=== PATIENT | male | born 1965 | race Caucasian/White ===

== ENCOUNTER 2020-09-16 14:10 | Emergency (ER) | payer OTHER, SELFPAY ==
[2020-09-16 14:10] VITALS: BP 145/96; PULSE 78; RESP 19; TEMP 36.6; O2SAT 95
[2020-09-16 14:17] VITALS: PULSE 77
--- NOTE | 2020-09-16 14:21 | PC.NURSE ---
PT argumentative with this RN. Pt will not tell RN what pharmacy he would use, stating i dont need any medication Finally get pt to agree to a pharmacy. Pt states Im not putting on a gown Pt asked to take off large necklaces in case he needs a chest x ray, pt refuses.
--- NOTE | 2020-09-16 14:39 | PC.NURSE ---
Pt states Im leaving, give me whatever papers I need to sign Pt informed that he has not been seen by a provider yet so he is free to leave without signing any papers. Pt ambulated to the exit with no difficulty
--- NOTE | 2020-09-16 14:41 | ECG_ITS ---
Measurements Intervals [place] Rate: 72 P: 23 WV: 153 QRS: -3 QRSD: 93 T: 65 QT: 386 QTc: 425 Interpretive Statements SINUS RHYTHM NORMAL ECG Electronically Signed On 09-16-2020 15:05:58 CRIMINALIST by Reji Bee D.O.
== END 2020-09-16 14:43 | disposition left against medical advice (07) ==
LOC: ANHED 14:37
PROVIDERS: Emergency Provider Emergency Medicine
DX: R06.02 Shortness of breath (principal)
CPT/HCPCS: 93005; 99199

== ENCOUNTER 2020-11-28 18:01 | Emergency (ER) | payer OTHER, SELFPAY ==
--- NOTE | ~2020-11-28 | CT_ITS ---
EXAMINATION: CT abdomen pelvis w con DATE: 11/28/2020 19:24 INDICATION: Epigastric abdominal pain. Right lower quadrant abdominal pain. Hematuria. TECHNIQUE: Computed tomography (CT) of the abdomen and pelvis was performed with 100 mL Omnipaque 350 intravenous contrast. Automated exposure control and iterative reconstruction technique were employe d. The dose-length product was 494.55 mGy-cm. COMPARISON: None. FINDINGS: The visualized portions of the lung bases demonstrate mild atelectasis. No pleural effusion . The heart size is normal. There are coronary artery calcifications. No pericardial effusion. Calcif ications in the liver consistent with old granulomatous disease. The gallbladder, spleen, pancreas, a nd adrenal glands are normal. There are cysts in the kidneys measuring up to 8 mm in the right. The p rostate is moderately enlarged. There is diverticulosis of the colon without evidence of diverticulit is. The appendix is normal. The stomach is distended. There are no pathologically enlarged lymph node s. There is no free intraperitoneal fluid. There is severe lumbar spondylosis. IMPRESSION: 1. Distention of the stomach. Reviewed, dictated and finalized at location A.
[2020-11-28 18:03] VITALS: BP 108/82; PULSE 95; RESP 18; TEMP 36.7; O2SAT 95
[2020-11-28 18:50] LABS: Basophils Absolute Auto 0.1 K/mm3 (0.0-0.1); Basophils Percent Auto 0.5 % (0.2-1.2); Eosinophils Absolute Auto 0.2 K/mm3 (0-0.3); Hematocrit 42.3 % (42.0-52.0); Hemoglobin 14.1 g/dL (14.0-18.0); Immature Granulocyte Absolute 0.03 K/mm3 (0.00-0.031); Immature Granulocyte Percent A 0.3 % (0-0.5); Lymphocytes Absolute Auto 2.08 K/mm3 (0.9-3.2); Lymphocytes Percent Auto 21.6 % (18.3-44.2); Mean Corpuscular HGB Conc 33.3 g/dl (32-36); Mean Corpuscular Hemoglobin 28.5 pg (26-34); Mean Corpuscular Volume 85.5 fl (80-100); Mean Platelet Volume 9.5 fl (7.4-10.4); Monocytes Absolute Auto 0.9 K/mm3 (0.1-0.6); Monocytes Percent Auto 9.3 % (2.6-8.5); Neutrophils Absolute Auto 6.4 K/mm3 (1.3-6.7); Neutrophils Percent Auto 66.3 % (45.5-73.1); Platelet Count Result 283 k/mm3 (150-375); Red Blood Count 4.95 M/mm3 (4.6-6.20); Red Cell Distribution Width 13.2 % (11.5-14.5); White Blood Count 9.6 K/mm3 (4.5-10.0)
[2020-11-28 19:02] LABS: Alanine Aminotransferase 18 U/L (4-50); Albumin Level 4.2 g/dL (3.5-5.1); Alkaline Phosphatase 92 U/L (38-126); Anion Gap 8 mmol/L (8-16); Aspartate Amino Transferase 31 U/L (17-59); Bilirubin,Total 0.4 mg/dL (0.2-1.3); Blood Urea Nitrogen 23 mg/dL (9-20); Calcium 9.2 mg/dL (8.4-10.2); Carbon Dioxide 29 mmol/L (22-30); Chloride 104 mmol/L (98-107); Estimated CRCL calculation 80 ml/min; Estimated Glomerular Filt Rate > 60; Glucose 131 mg/dL (75-110); Lipase 69 U/L (23-300); Potassium 4.1 mmol/L (3.4-5.0); Sodium 141 mmol/L (137-145)
--- NOTE | 2020-11-28 19:42 | PC.NURSE ---
pt states he isnt able to urinate at this time, refused straight cath.
[2020-11-28 19:45] VITALS: BP 103/53; PULSE 90; RESP 20; O2SAT 96
--- NOTE | 2020-11-28 19:57 | PC.NURSE ---
pt refused a straight cath at 1957
[2020-11-28] MEDS: SODIUM CHLORIDE 0.9% IV 1,000 ML 999 ML IV CONT (20:14)
[2020-11-28] MEDS: DICYCLOMINE HCL INJ 20 MG/2 ML VIAL IM (20:14)
[2020-11-28 20:24] LABS: Add Urine Microscopic? YES; Appearance Urine Cloudy (Clear); Bilirubin Urine Negative (Negative); Blood Urine 3+ (Negative); Color Urine Yellow (Yellow); Glucose Urine UA Negative (Negative); Ketones Urine Negative (Negative); Leukocyte Esterase Ur Negative LEU/UL (Negative); Mucus Urine Rare /lpf; Nitrate Urine Negative (Negative); Protein Urine 1+ mg/dL (Negative); RBC Urine >75 /hpf (0-2); WBC Urine 0-3 /hpf
[2020-11-28 20:26] LABS: Specific Grav Ur 1.048 (1.001-1.035)
[2020-11-28 20:42] VITALS: BP 114/75; PULSE 85; RESP 18; O2SAT 99
[2020-11-28 21:00] LABS: Barbiturate Screen Urine Negative (Negative); Benzodiazepines Screen Urine Negative (Negative)
--- NOTE | 2020-11-28 21:00 | ED.ABDPAIN ---
HPI - Abdominal Pain General Chief Complaint: Abdominal Pain Stated Complaint: abd pain Time Seen by Provider: 11/28/20 18:23 Source: patient Mode of arrival: ambulatory Limitations: no limitations History of Present Illness HPI narrative: Patient is a 55-year-old male presenting with chief complaint of evaluation of right inguinal hernia. Patient states he has had a hernia for many years but occasionally it becomes painful and makes him feel nauseous. Patient is not having the pain or the nausea at this time. Patient states he also has some epigastric cramping and right lower quadrant pain. He reports he had a few episodes of vomiting a few days ago but denies any today. Patient states that he will lose some blood in his urine. He has not had any issues urinating. He is not passing blood clots. Patient denies fever, chills, nausea, vomiting, diarrhea, chest pain or shortness of breath or any other symptoms. Related Data Allergies Allergy/AdvReac Type Severity Reaction Status Date / Time No Known Allergies Allergy Verified 11/28/20 18:05 Review of Systems Review of Systems: Narrative: CONSTITUTIONAL: Denies fever, chills, or sweats. EYES: Denies visual changes, redness, or discharge. ENT: Denies rhinorrhea, congestion, sore throat, or otalgia. CARDIOVASCULAR: Denies chest pain, palpitations, or edema. RESPIRATORY: Denies cough or dyspnea. GASTROINTESTINAL: Right groin hernia right lower quadrant epigastric pain denies nausea, vomiting, or diarrhea. GENITOURINARY: Denies dysuria or hematuria. SKIN: Denies rash or itching. MUSCULOSKELETAL: Denies back pain, joint pain, or myalgia. NEUROLOGIC: Denies headache, numbness, dizziness, or weakness. PSYCHIATRIC: Denies anxiety or depression. PMFSH Social History Social History Gender identity (if verbalized by the patient): Male Exam Narrative: Exam Narrative: GENERAL: Well-nourished, and in no acute distress. Disheveled with dirty fingernails and clothing. HEAD: Normocephalic, atraumatic. EYES: PERRLA and EOMI. ENT: Nares clear, no rhinorrhea or epistaxis. Mucous membranes moist. Oropharynx without tonsillar hypertrophy exudate or other lesions. Bilateral TMs pearly villa nonbulging NECK: Supple. No adenopathy or masses. CHEST: Clear to auscultation. No respiratory distress. No wheezes rales or rhonchi HEART: Regular rate and rhythm. No murmur heard. Normal peripheral pulses. ABDOMEN: Soft, reports tenderness with right lower quadrant palpation, nondistended, normal active bowel sounds. EXTREMITIES: Normal range of motion. No edema. SKIN: Patient has pustule to right arm that is draining. Appears mildly cellulitic. Warm, dry, no rash. NEURO: No focal deficits. Alert and oriented x3. PSYCH: Normal mood and affect. Course Vital Signs Vital signs: Vital Signs Temperature 98.0 F 11/28/20 18:03 Pulse Rate 95 11/28/20 18:03 Respiratory Rate 18 11/28/20 18:03 Blood Pressure 108/82 11/28/20 18:03 Pulse Oximetry 95 11/28/20 18:03 Temperature 98.0 F 11/28/20 18:03 Pulse Rate 85 11/28/20 20:42 Respiratory Rate 18 11/28/20 20:42 Blood Pressure 114/75 11/28/20 20:42 Pulse Oximetry 99 11/28/20 20:42 MDM - Abdominal Pain MDM Narrative Medical decision making narrative: Patient has been sleeping comfortably in emergency department throughout his visit. Not having any signs of discomfort or distress. Discussed work-up findings and the need for follow-up. Patient instructed follow-up with urology for further investigation of the blood in his urine. Patient not passing blood clots and not having any obstruction to his urination. Patient not show any signs of kidney injury. Patient also be started on Bactrim for cellulitis to the right arm. Patient instructed to follow-up with general surgery if you would like to discuss options for right inguinal hernia repair. Patient strict return to emergency department if he has any signs of incarcer
[2020-11-28 21:13] LABS: Cannabinoid Screen Urine Positive (Negative); Cocaine Screen Urine Negative (Negative); Methadone Screen Urine Negative (Negative); Opiate Screen Urine Negative (Negative); Phencyclidine Screen Urine Negative (Negative)
[2020-11-28 21:22] VITALS: BP 115/75; PULSE 82; RESP 18; O2SAT 99
[2020-11-28 21:32] LABS: Amphetamine Screen Urine Positive (Negative)
== END 2020-11-28 21:24 | disposition home or self-care (01) ==
PROVIDERS: Physician Assistant; Emergency Provider Emergency Medicine
DX: K40.90 Unilateral inguinal hernia, without obstruction or gangrene, not specified as recurrent (principal); L03.113 Cellulitis of right upper limb; R31.9 Hematuria, unspecified
CPT/HCPCS: 36415; 74177; 80053; 80307; 81001; 83690; 85025; 96360; 96372; 99284; J0500; J7030; Q9967

== ENCOUNTER 2024-03-02 02:45 | Emergency (ER) | payer OTHER, SELFPAY ==
[2024-03-02] VITALS (8 sets, daily range): BP systolic 113–130; BP diastolic 72–79; PULSE 62–93; RESP 15–24; TEMP 37.3; O2SAT 96–100
--- NOTE | ~2024-03-02 | XR_ITS ---
EXAMINATION: XR chest 1V portable DATE: 03/02/2024 03:28 INDICATION: Chest pain. TECHNIQUE: A single frontal view of the chest was obtained on 2 radiographs. COMPARISON: Chest single view 10/06/2011 FINDINGS: There is mild atelectasis in the lower lung zones. No pleural effusion or pneumothorax. The heart size is normal. IMPRESSION: 1. Mild atelectasis in the lower lung zones. Reviewed, dictated and finalized at location A.
--- NOTE | ~2024-03-02 | CT_ITS ---
EXAMINATION: CTA chest PE protocol DATE: 03/02/2024 05:05 INDICATION: Chest pain. TECHNIQUE: Computed tomography angiography (CTA) of the chest was performed with 100 mL Omnipaque-350 intravenous contrast timed to evaluate the pulmonary arteries. Coronal maximum intensity projection 3D-reconstructions were created by the technologist. Automated exposure control and iterative reconst ruction technique were employed. The dose-length product was 667.33 mGy-cm. COMPARISON: CT abdomen and pelvis 11/28/2020 FINDINGS: There is moderate emphysema. There is mild atelectasis bilaterally. Again seen is a 6 mm no dule in right middle lobe, likely benign. There is a 6 mm nodule in left lower lobe. There is a 5 mm nodule in lingula. Calcified right lung nodules and calcified right hilar lymph nodes are consistent with old granulomatous disease. No pleural effusion. The heart size is normal. No pericardial effusio n. There is mild bilateral hilar lymphadenopathy. There is mild pulmonary embolus. Calcifications in the liver are consistent with old granulomatous disease. There is severe thoracic spondylosis. IMPRESSION: 1. No pulmonary embolus. 2. Moderate emphysema. 3. Pulmonary nodules measuring up to 6 mm, probably benign. Noncontrast low-dose chest CT is recommen ded in 6 months. 4. Mild bilateral hilar lymphadenopathy, likely reactive. Reviewed, dictated and finalized at location A. IMPRESSION: 1. No pulmonary embolus. 2. Moderate emphysema. 3. Pulmonary nodules measuring up to 6 mm, probably benign. Noncontrast low-dos e chest CT is recommended in 6 months. 4. Mild bilateral hilar lymphadenopathy, likely reactive.
--- NOTE | 2024-03-02 02:48 | ECG_ITS ---
Test Date: 2024-03-02 02:51:14 Measurements Intervals [place] Rate: 82 P: 38 NC: 157 QRS: 59 QRSD: 85 T: 72 QT: 352 QTc: 413 Interpretive Statements SINUS RHYTHM WITH OCCASIONAL VENTRICULAR PREMATURE COMPLEXES BASELINE ARTIFACT- I, III, AVR, AVL, V1 BORDERLINE ECG No previous ECG available for comparison Electronically Signed On 03-02-2024 07:40:45 CDT by Reji Bee D.O.
[2024-03-02 03:23] LABS: Basophils Percent Auto 0.4 % (0.2-1.2); Eosinophils Absolute Auto 0.1 K/mm3 (0-0.3); Eosinophils Percent Auto 1.2 % (0-4.4); Hematocrit 43.8 % (42.0-52.0); Hemoglobin 14.8 g/dL (14.0-18.0); Immature Granulocyte Absolute 0.02 K/mm3 (0.00-0.031); Immature Granulocyte Percent A 0.2 % (0-0.5); Lymphocytes Absolute Auto 0.87 K/mm3 (0.9-3.2); Lymphocytes Percent Auto 10.4 % (18.3-44.2); Mean Corpuscular HGB Conc 33.8 g/dl (32-36); Mean Corpuscular Hemoglobin 29.4 pg (26-34); Mean Corpuscular Volume 87.1 fl (80-100); Mean Platelet Volume 9.4 fl (7.4-10.4); Monocytes Absolute Auto 0.8 K/mm3 (0.1-0.6); Neutrophils Absolute Auto 6.5 K/mm3 (1.3-6.7); Neutrophils Percent Auto 77.8 % (45.5-73.1); Platelet Count Result 239 k/mm3 (150-375); Red Blood Count 5.03 M/mm3 (4.6-6.20); Red Cell Distribution Width 13.2 % (11.5-14.5); White Blood Count 8.4 K/mm3 (4.5-10.0)
--- NOTE | 2024-03-02 03:36 | ED.CHESTPAIN ---
HPI - Chest Pain General Chief Complaint: Chest Pain Stated Complaint: chest pain Time Seen by Provider: 03/02/24 02:53 Source: patient Limitations: no limitations History of Present Illness HPI narrative: Patient is a 58-year-old male presents to the emergency department complaining of chest pain. Patient states the pain started around 10:30 p.m. tonight on the rest, admits to some slight shortness of breath at the, radiates to his right arm, worse when taking a deep breath in, overall constant but getting better, had similar pain yesterday that went away and also similar pain 1 year ago that resolved and he was evaluated [facility] but does not know is going on. Patient states the pain is in the middle of his chest, sharp, has not noticed anything that makes it better or worse, has not tried anything for the pain. Patient denies recent injuries, recent illness, history of blood clots, vomiting, diarrhea, melena, hematochezia, unilateral lower extremity swelling, rash, cough, sore throat, fever, abdominal pain, alcohol use, illicit drug use. Patient admits to being a smoker. Patient denies history of high blood pressure or diabetes or high cholesterol. Related Data Allergies Allergy/AdvReac Type Severity Reaction Status Date / Time No Known Allergies Allergy Verified 11/28/20 18:05 Review of Systems Review of Systems: A 10 system review of systems was completed on the patient and is negative except for what is stated in the HPI. Nursing and ancillary documentation was reviewed. PMFSH Social History Social History Gender identity (if verbalized by the patient): Male Comments At time of signature, I have reviewed and agree with nursing past medical, surgical, social and family history unless otherwise noted. Please see the nursing chart for further information. There is no relevant family history pertinent to the presenting complaint. Exam Narrative: CONST: No acute distress. Well nourished. HENMT: Head is normocephalic and atraumatic. Moist mucous membranes. No posterior oropharynx erythema. EYES: No conjunctival icterus, injection, or pallor. PERRL. NECK: No meningeal signs. RESP: Able to speak in full sentences. Normal respiratory effort. CTAB. CARDIO: Regular rate. Regular rhythm. 2+ DP and radial pulses bilaterally. GI: Nondistended. No tenderness to palpation. Soft. : No CVA tenderness to palpation. SKIN: No rashes or lesions noted on exposed skin. NEURO: Oriented x3. Moves all extremities. EXTREM/MSK/BACK: No pedal edema. PSYCH: Normal affect. Course Vital Signs Vital signs: Vital Signs Temperature 99.2 F 03/02/24 02:48 Pulse Rate 89 03/02/24 02:48 Respiratory Rate 16 03/02/24 02:48 Blood Pressure 130/78 03/02/24 02:48 Pulse Oximetry 99 03/02/24 02:48 Oxygen Delivery Room Air 03/02/24 02:48 Temperature 99.2 F 03/02/24 02:48 Pulse Rate 62 03/02/24 06:24 Respiratory Rate 16 03/02/24 06:24 Blood Pressure 123/78 03/02/24 06:24 Pulse Oximetry 99 03/02/24 06:24 Oxygen Delivery Room Air 03/02/24 03:03 MDM - Chest Pain MDM Narrative Medical decision making narrative: Patient presents with the above complaint. Initial vitals are remarkable for no significant abnormalities. Physical examination as noted above. Differential diagnosis includes was not limited to: ACS, pneumonia, pneumothorax, pulmonary embolism, aortic dissection. Plan discussed: Laboratory analysis, EKG, chest x-ray, continues cardiac monitoring, continuous pulse oximetry, aspirin, IV fluids, famotidine. Patient was reassessed at the bedside. No changes in physical exam. Patient is in no acute distress. The patient has remained stable throughout the entire ED visit. Counseled patient regarding diagnostic results and potential diagnosis. Anticipatory guidance provided. Patient instructed to follow up with PCP within 2-3 days. Patient counseled on: false reassurance from
[2024-03-02 03:41] LABS: INR 1.1; Partial Thromboplastin Time 31.3 Seconds (22.3-36.8); Prothrombin Time 14.4 Seconds (11.1-14.7)
[2024-03-02 03:44] LABS: Alanine Aminotransferase 28 U/L (6-50); Albumin Level 4.1 g/dL (3.5-5.1); Alkaline Phosphatase 86 U/L (38-126); Anion Gap 7 mmol/L (4-12); Aspartate Amino Transferase 30 U/L (17-59); Bilirubin,Total 0.5 mg/dL (0.2-1.3); Blood Urea Nitrogen 11 mg/dL (9-20); Calcium 8.9 mg/dL (8.4-10.2); Carbon Dioxide 27 mmol/L (22-30); Chloride 101 mmol/L (98-107); Estimated CRCL calculation 86 ml/min; Estimated Glomerular Filt Rate > 60; Glucose 128 mg/dL (65-110); Lipase 179 U/L (23-300); Potassium 3.4 mmol/L (3.4-5.0); Sodium 135 mmol/L (137-145)
[2024-03-02 03:55] LABS: Troponin I < 0.012 ng/mL (0.000-0.034)
[2024-03-02] MEDS: SODIUM CHLORIDE 0.9% IV 1,000 ML 999 ML IV CONT ×2 (04:01)
[2024-03-02] MEDS: FAMOTIDINE 20 MG/2 ML VIAL IV PUSH (04:02)
[2024-03-02 04:16] LABS: D Dimer 1.29 ug/mL (<0.48)
[2024-03-02 04:26] LABS: Ethanol < 10 mg/dL (<10)
--- NOTE | 2024-03-02 04:36 | PC.NURSE ---
Patient refused straight catheter for urinary specimen at time of fluids starting.
[2024-03-02 05:46] LABS: Barbiturate Screen Urine Negative (Negative); Benzodiazepines Screen Urine Negative (Negative)
[2024-03-02 05:57] LABS: Cannabinoid Screen Urine Positive (Negative); Cocaine Screen Urine Negative (Negative); Methadone Screen Urine Negative (Negative); Opiate Screen Urine Negative (Negative); Phencyclidine Screen Urine Negative (Negative)
--- NOTE | 2024-03-02 05:57 | ECG_ITS ---
Test Date: 2024-03-02 06:00:04 Measurements Intervals [place] Rate: 67 P: 40 NE: 163 QRS: 52 QRSD: 85 T: 64 QT: 396 QTc: 419 Interpretive Statements SINUS RHYTHM NORMAL ECG Compared to ECG 03/02/2024 02:51:14 Ventricular premature complex(es) no longer present Electronically Signed On 03-02-2024 07:44:49 CDT by Reji Bee D.O.
[2024-03-02 06:19] LABS: Amphetamine Screen Urine Positive (Negative)
[2024-03-02 06:21] LABS: Influenza A QL RT-PCR Negative (Negative); Influenza B QL RT-PCR Negative (Negative); RSV RNA, RT-PCR Negative (Negative); SARS-CoV-2 RNA PCR Negative (Negative)
[2024-03-02 06:49] LABS: Troponin I < 0.012 ng/mL (0.000-0.034)
== END 2024-03-02 07:00 | disposition home or self-care (01) ==
PROVIDERS: Emergency Provider Student in an Organized Health Care Education/Training Program; PCP Emergency Medicine
DX: R07.9 Chest pain, unspecified (principal); Z20.822 Contact with and (suspected) exposure to COVID-19
CPT/HCPCS: 36415; 71045; 71275; 80053; 80307; 83690; 83735; 84484; 85025; 85380; 85610; 85730; 87637; 93005; 96361; 96374; 99284; J7030; Q9967